=== PATIENT | female | born 2000 | race Caucasian/White ===

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

== ENCOUNTER 2022-06-06 12:36 | Emergency (ER) | payer OTHER, SELFPAY ==
[2022-06-06 12:41] VITALS: BP 123/75; PULSE 106; RESP 16; TEMP 36.6; O2SAT 99
--- NOTE | 2022-06-06 13:18 | ED.GENADULT ---
HPI - General Adult General Chief complaint: Extremity Injury, Lower Stated complaint: Numbness to left arm/left leg Source: patient Mode of arrival: ambulatory Limitations: no limitations History of Present Illness HPI narrative: Patient presents for evaluation of pain and numbness in the left forearm and left lower leg. Symptom onset 3 days ago. She states that it feels like she is having growing pains . Numbness does not extend into the digits of her left hand. No recent injury. No history of similar symptoms. She does not workout on a regular basis. No underlying medical problems. She is concerned that she may have had a stroke. She is also concerned that she may have a blood clot. Her grandmother had a stroke which is what prompted her to be concerned. She denies any headache, lateralizing deficits with strength or range of motion, difficulty with cognitive processing, speech. She is on an estrogen-based contraceptive and does vape. No personal history of VTE. No leg swelling. No left upper extremity swelling. No SOB or chest pain. Related Data Home Medications Medication Instructions Recorded Confirmed norgestimate 0.25 mg-ethinyl 1 tablet PO DAILY 11/26/20 06/06/22 estradiol 35 mcg tablet (Estarylla) Allergies Allergy/AdvReac Type Severity Reaction Status Date / Time No Known Allergies Allergy Verified 06/06/22 12:47 Review of Systems Review of Systems: CONSTITUTIONAL: Denies fever, chills, or sweats. EYES: Denies visual changes, redness, or discharge. ENT: Denies rhinorrhea, congestion, sore throat, or otalgia. CARDIOVASCULAR: Denies chest pain, palpitations, or edema. RESPIRATORY: Denies cough or dyspnea. GASTROINTESTINAL: Denies abdominal pain, nausea, vomiting, or diarrhea. GENITOURINARY: Denies dysuria or hematuria. SKIN: Denies rash or itching. MUSCULOSKELETAL: Reports pain in left forearm and left lower leg. Denies back pain. NEUROLOGIC: Reports numbness in the left forearm and left lower leg PSYCHIATRIC: Denies anxiety or depression. [facility] Past Medical History Medical History Smoker Surgical History Surgical History No significant past surgical history Family History Family History Father Alive and well Mother Alive and well Social History Social History Smoking status: Light tobacco smoker Tobacco type: cigarettes Second hand tobacco smoke exposure: No Additional smoking assessment comments: Diane reports she does not smoke daily Alcohol intake: current Substance use: current Substance use type: marijuana Gender identity (if verbalized by the patient): Female Sexual Orientation (if Verbalized by the Patient): Straight or Heterosexual Exam Narrative: GENERAL: Well-appearing, well-nourished, and in no acute distress. HEAD: Normocephalic, atraumatic. EYES: PERRLA and EOMI. ENT: Nares clear, no rhinorrhea or epistaxis. Mucous membranes moist. Oropharynx without tonsillar hypertrophy exudate or other lesions. Bilateral TMs pearly flannery nonbulging NECK: Supple. No adenopathy or masses. No carotid bruits or JVD CHEST: Clear to auscultation. No respiratory distress. No wheezes rales or rhonchi HEART: Regular rate and rhythm. No murmur heard. Normal peripheral pulses. ABDOMEN: Soft, nontender, nondistended, normal active bowel sounds. EXTREMITIES: Circumference of left calf is 33 cm. Circumference of right calf is 33 cm. There is no swelling in either lower extremity. There is no warmth or redness present. Full range of motion of all joints in bilateral lower extremities. Negative Holli's sign. No tenderness or swelling in left forearm. Full ROM of all joint in LLE SKIN: Warm, dry, no rash. NEURO: No focal deficits. Alert and oriented x3. Face is symmetric. Able to perf
== END 2022-06-06 13:18 | disposition home or self-care (01) ==
PROVIDERS: Emergency Provider Nurse Practitioner
DX: M79.602 Pain in left arm (principal); M79.605 Pain in left leg; R20.2 Paresthesia of skin; F17.210 Nicotine dependence, cigarettes, uncomplicated; F12.90 Cannabis use, unspecified, uncomplicated; F17.290 Nicotine dependence, other tobacco product, uncomplicated
CPT/HCPCS: 99211; G0463